=== PATIENT | female | born 1945 | race Caucasian/White ===

== ENCOUNTER 2019-03-20 11:22 | Emergency (ER) | payer MEDICARE ==
[~2019-03-20] VITALS: Ht 170.2 cm; Wt 81.7 kg
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
[2019-03-20] MEDS ORDERED: ASPIR-LOW81 MG PO (12:09)
[2019-03-20] MEDS ORDERED: PEPCID AC10 MG PO (12:09)
[2019-03-20] MEDS ORDERED: CELEXA20 MG PO (12:09)
== END 2019-03-20 12:20 | disposition home or self-care (01) ==
LOC: ED 11:22
DX: S00.03XA Contusion of scalp, initial encounter (principal); W18.30XA Fall on same level, unspecified, initial encounter; Z88.2 Allergy status to sulfonamides; Z79.82 Long term (current) use of aspirin; Z79.899 Other long term (current) drug therapy
CPT/HCPCS: 99283